=== PATIENT | female | born 2000 | race Native Hawaiian/Other Pacific Islander ===

== ENCOUNTER 2023-10-26 10:58 | Emergency (ER) | payer BC | END 2023-10-26 13:23 | disposition home or self-care (01) | LOC: ERS 10:58 | DX: O34.82 Maternal care for other abnormalities of pelvic organs, second trimester (principal); D27.1 Benign neoplasm of left ovary; Z3A.14 14 weeks gestation of pregnancy | CPT/HCPCS: 76815 ==